=== PATIENT | male | born 1980 | race Hispanic/Latino ===

== ENCOUNTER 2019-07-02 02:06 | Emergency (ER) | payer SELFPAY ==
--- NOTE | 2019-07-02 02:57 | Emergency Department Report ---
<DIANA MISHRA - Last Filed: 07/05/19 14:28> ED Psych HPI - General Chief Complaint: Psych Stated Complaint: HEARING VOICES Time Seen by Provider: 07/02/19 02:55 - Related Data Previous Rx's Medication Instructions Recorded Last Taken Type OLANzapine [ZyPREXA] 5 mg PO QHS #30 tablet 07/05/19 Unknown Rx buPROPion [Wellbutrin] 100 mg PO 0800,1200 #60 tablet 07/05/19 Unknown Rx Allergies Allergy/AdvReac Type Severity Reaction Status Date / Time sulfamethoxazole Allergy Swelling Verified 07/02/19 02:15 [From Bactrim] trimethoprim [From Bactrim] Allergy Swelling Verified 07/02/19 02:15 ED Past Medical Hx - Medications Home Medications: Home Medications Medication Instructions Recorded Confirmed Last Taken Type OLANzapine [ZyPREXA] 5 mg PO QHS #30 tablet 07/05/19 Unknown Rx buPROPion [Wellbutrin] 100 mg PO 0800,1200 #60 tablet 07/05/19 Unknown Rx ED Course - Reevaluation(s) Reevaluation #1: 07/05/19 14:29 Patient medically cleared 3 days ago by my colleague, Dr. Diez. The patient has been in this department for days without clinical decompensation. His 1013 today was discontinued by the psychiatry team, and they have given him outpatient prescriptions. He can follow-up with an outpatient primary care doctor and/or psychiatrist for outpatient management. He did not endorse any urinary symptoms on review of systems. He can follow-up with an outpatient primary care doctor for this incidental asymptomatic abnormality. ED Medical Decision Making - Lab Data Result diagrams: 07/02/19 02:30 07/02/19 02:30 ED Disposition Clinical Impression: Suicidal ideation, Polysubstance abuse, Acute depression Disposition: DC-01 TO HOME OR SELFCARE Is pt being admited?: No Does the pt Need Aspirin: No Condition: Stable Additional Instructions: Continue current outpatient medications. Avoid consumption of recreational drugs, and alcohol. Patient had incidental asymptomatic nonemergent laboratory abnormalities, and these should be followed up by a primary care doctor within the next 2 to 4 weeks. Please follow-up with your primary care doctor or health department within the next 2 to 4 weeks. Return to the emergency room right away with new, worsened or different symptoms, or symptoms not present on the initial emergency room ciro luation. Your primary care doctor may contact the medical records department to obtain laboratory studies to follow-up nonemergent incidental abnormalities. Prescriptions: OLANzapine [ZyPREXA] 5 mg PO QHS #30 tablet buPROPion [Wellbutrin] 100 mg PO 0800,1200 #60 tablet Referrals: MAT KIRK MD [Staff Physician] - 3-5 Days [facility] [Outside] - 3-5 Days [facility] [Provider Group] - 3-5 Days <CECILY DIEZ - Last Filed: 07/06/19 11:04> ED Psych HPI - General Source: patient Mode of arrival: Ambulatory - History of Present Illness Initial Comments: Chief complaint: " The voices in my head are telling me to hurt myself." Mr. Corral is a 39-year-old male with history of HIV, neurosyphilis, depression, hypertension, who presents with thoughts of harming himself. He has voices in his head telling him to kill himself. He has been injecting himself with methamphetamine. He states that he is trying to end his life through drug use. He has used methamphetamine for over 20 years. He was recently discharged from [place] emergency department for depression. He feels that his symptoms are much more than that. He has been homeless for the past 3 years. He lives in abandoned buildings. He does not have family support. Otherwise he has been in his normal state of health. Complaint: suicidal ideation -: Gradual, week(s) (1) Associated Psychiatric Symptoms: depression, suicidal ideation, auditory hallucinations History of same: Yes Quality: constant Improves With: none Worsens With: none Context: recent drug abuse, not taking psychiatric, significant life stressor Associated Symptoms: denies other symptoms If Self Harm: admits thoughts of ED Review of Systems ROS: Stated complaint: HEARING VOICES Other details as noted in HPI Comment: All other systems reviewed and negative Constitutional: denies: fever, malaise Respiratory: denies: cough Cardiovascular: denies: chest pain ED Past Medical Hx - Past Medical History Previous Medical History?: Yes Hx Hypertension: Yes Hx Psychiatric Treatment: Yes (depression) Hx HIV: Yes Additional medical history: Neuro syphillis - Surgical History Past Surgical History?: Yes Hx Cholecystectomy: Yes - Social History Smoking Status: Current Every Day Smoker Substance Use Type: Marijuana, Methamphetamines ED Physical Exam - General Limitations: No Limitations General appearance: alert, in no apparent distress - Head Head exam: Present: atraumatic, normocephalic - Eye Eye exam: Present: normal appearance - ENT ENT exam: Present: mucous membranes moist - Neck Neck exam: Present: normal inspection, full ROM - Respiratory Respiratory exam: Present: normal lung sounds bilaterally. Absent: respiratory distress, wheezes, rales, rhonchi - Cardiovascular Cardiovascular Exam: Present: regular rate, normal rhythm, normal heart sounds. Absent: systolic murmur, diastolic murmur, rubs, gallop - GI/Abdominal GI/Abdominal exam: Present: soft, normal bowel sounds. Absent: distended, tenderness, guarding, rebound - Rectal Rectal exam: Present: deferred - Extremities Exam Extremities exam: Present: normal inspection - Back Exam Back exam: Present: normal inspection - Neurological Exam Neurological exam: Present: alert, oriented X3 - Psychiatric Psychiatric exam: Present: normal affect, depressed, suicidal ideation - Skin Skin exam: Present: warm, dry, intact, normal color. Absent: rash ED Course Vital Signs 07/02/19 07/02/19 07/02/19 02:16 07:32 10:05 Temperature 97.8 F 97.8 F 97.8 F Pulse Rate 103 H 63 75 Respiratory 20 20 20 Rate Blood Pressure Blood Pressure 132/86 98/51 112/56 [Right] O2 Sat by Pulse 97 97 100 Oximetry 07/02/19 07/02/19 07/02/19 14:10 19:38 20:22 Temperature 98.2 F 98.0 F Pulse Rate 85 73 Respiratory 20 18 18 Rate Blood Pressure Blood Pressure 113/57 93/51 [Right] O2 Sat by Pulse 98 99 99 Oximetry 07/03/19 07/03/19 07/03/19 01:37 07:55 14:10 Temperature 98.0 F 98.6 F Pulse Rate 68 64 73 Respiratory 16 18 Rate Blood Pressure 116/86 Blood Pressure 99/62 103/60 [Right] O2 Sat by Pulse 99 98 99 Oximetry 07/03/19 07/03/19 07/04/19 19:52 20:53 02:11 Temperature 97.8 F 98.0 F Pulse Rate 67 64 Respiratory 16 16 18 Rate Blood Pressure Blood Pressure 122/67 114/79 [Right] O2 Sat by Pulse 98 98 98 Oximetry 07/04/19 07/04/19 07/04/19 07:46 08:40 14:13 Temperature 99.5 F 98.4 F Pulse Rate 78 67 Respiratory 18 18 18 Rate Blood Pressure Blood Pressure 129/84 139/76 [Right] O2 Sat by Pulse 98 97 100 Oximetry 07/04/19 07/05/19 07/05/19 20:00 01:59 08:47 Temperature 98.1 F 97.6 F 98.2 F Pulse Rate 68 58 L 63 Respiratory 16 16 18 Rate Blood Pressure Blood Pressure 128/86 108/63 140/85 [Right] O2 Sat by Pulse 99 96 100 Oximetry ED Medical Decision Making - Lab Data Result diagrams: 07/02/19 02:30 07/02/19 02:30 Laboratory Results - last 24 hr 07/02/19 07/02/19 07/02/19 02:30 02:30 02:30 WBC RBC Hgb Hct MCV MCH MCHC RDW Plt Count Lymph % (Auto) [place] % (Auto) Eos % (Auto) Baso % (Auto) Lymph # [place] # Eos # Baso # Seg Neutrophils % Seg Neutrophils # Sodium 137 Potassium 4.1 Chloride 101.9 Carbon Dioxide 23 Anion Gap 16 BUN 16 Creatinine 1.1 Estimated GFR > 60 BUN/Creatinine Ratio 15 Glucose 145 H Calcium 9.2 Salicylates < 0.3 L Acetaminophen < 5.0 L Plasma/Serum Alcohol 07/02/19 07/02/19 02:30 02:30 WBC 5.4 RBC 5.20 H Hgb 15.1 Hct 44.6 MCV 86 MCH 29 MCHC 34 RDW 14.1 Plt Count 310 Lymph % (Auto) 36.9 H [place] % (Auto) 9.0 H Eos % (Auto) 2.8 Baso % (Auto) 1.7 Lymph # 2.0 [place] # 0.5 Eos # 0.2 Baso # 0.1 Seg Neutrophils % 49.6 Seg Neutrophils # 2.7 Sodium Potassium Chloride Carbon Dioxide Anion Gap BUN Creatinine Estimated GFR BUN/Creatinine Ratio Glucose Calcium Salicylates Acetaminophen Plasma/Serum Alcohol < 0.01 - Medical Decision Making Mr. Corral is a 39-year-old male with history of depression methamphetamine abuse HIV neurosyphilis who presents with suicidal ideation. He states that he is trying to kill himself through his extensive drug use. He has been injecting methamphetamine. He is quite honest and insightful. I have placed him on 1013 involuntary protocol. Considering social situation it may be difficult to contract for his safety. Mr. Corral is medically clear for psychiatric care. Critical care attestation.: If time is entered above; I have spent that time in minutes in the direct care of this critically ill patient, excluding procedure time. ED Disposition Is pt being admited?: No Does the pt Need Aspirin: No
[2019-07-02 02:59] LABS: Basophils # (Auto) 0.1 K/mm3 (0.0-0.1); Basophils % (Auto) 1.7 % (0.0-1.8); Eosinophils # (Auto) 0.2 K/mm3 (0.0-0.4); Eosinophils % (Auto) 2.8 % (0.0-4.3); Hematocrit 44.6 % (35.5-45.6); Hemoglobin 15.1 gm/dl (11.8-15.2); Lymphocytes % (Auto) 36.9 % (13.4-35.0); Mean Corpuscular HGB Conc 34 % (32-34); Mean Corpuscular Volume 86 fl (84-94); Monocytes # (Auto) 0.5 K/mm3 (0.0-0.8); Platelet Count 310 K/mm3 (140-440); Red Cell Distribution Width 14.1 % (13.2-15.2)
[2019-07-02 03:12] LABS: BUN/Creatinine Ratio 15; Blood Urea Nitrogen 16 mg/dL (9-20); Calcium 9.2 mg/dL (8.4-10.2); Hemolysis Index 12
[2019-07-02 08:45] LABS: Bacteria,Urine 2+ /HPF (Negative); Bilirubin,Urine NEG (Negative); Blood,Urine NEG (Negative); Calcium Oxalate Crystals,Urine 2+; Color,Urine Amber (Yellow); Mucus,Urine 3+ /HPF; Sperm,Urine 1+ /HPF (NP)
[2019-07-02 08:51] LABS: Benzodiazepines Screen,Urine PRESUMPTIVE NEGATIVE; Cocaine Screen,Urine PRESUMPTIVE NEGATIVE; Methadone Screen,Urine PRESUMPTIVE NEGATIVE; Opiate Screen,Urine PRESUMPTIVE NEGATIVE
[2019-07-02 09:04] LABS: Amphetamine Screen,Urine PRESUMPTIVE POSITIVE; Cannabinoid Screen,Urine PRESUMPTIVE POSITIVE
[2019-07-02] MEDS ORDERED: LORazepam 0.5 MG TAB ONE (18:43)
[2019-07-02] MEDS ORDERED: LORazepam 1 MG TAB PO ONE (18:44)
[2019-07-02] MEDS ORDERED: LORazepam 0.5 MG TAB PO ONE (18:48)
--- NOTE | 2019-07-03 09:03 | Consultation ---
History of Present Illness - Reason for Consult Consult date: 07/03/19 Reason for consult: SI, Polysubstance abuse Requesting physician: CECILY SHEA - Chief Complaint Chief complaint: Suicidal - History of Present Psychiatric Illness The patient is a 39yo single unemployed homeless male with history of Methamphetamine & Cannabis use disorder, HIV, Neurosyphilis and HTN. He presented to the ED with c/o hearing voices, depressed mood and suicidal thoughts. Psychiatry consulted to evaluate patient, initiate treatment and recommend disposition. Per ED Provider's note: Mr. Corral is a 39-year-old male with history of HIV, neurosyphilis, depression, hypertension, who presents with thoughts of harming himself. He has voices in his head telling him to kill himself. He has been injecting himself with methamphetamine. He states that he is trying to end his life through drug use. He has used methamphetamine for over 20 years. He was recently discharged from [place] emergency department for depression. He feels that his symptoms are much more than that. He has been homeless for the past 3 years. He lives in abandoned buildings. He does not have family support. Otherwise he has been in his normal state of health. Patient seen by me this morning. He is alert, fully oriented, calm and cooperative. He continues to endorse hearing voices that tell him to end his life; he feels depressed and suicidal with a plan to overdose on IV Meth. Patient relates his depressed mood and suicidal thoughts to multiple stresses including being lonely, no social support, homeless and being infected with HIV. He has decreased appetite and sleeps poorly. Patient denies panic attacks, recurrent nightmares or flashbacks. Patient denies symptoms suggestive of OCD or PTSD. Patient denies paranoia, thought interference and no features suggestive of hypomania or jenelle. He completely denies homicidal thoughts. PAST PSYCHIATRIC HISTORY: Diagnoses: None Suicide attempts or Self-harm behavior: patient denies Prior psychiatric hospitalizations: patient denies Substance Abuse history: THC and Meth Previous psychiatric medications tried: None Outpatient treatment: None PAST MEDICAL HISTORY: HIV, Neurosyphilis and HTN Family Psychiatric History None reported or documented SOCIAL HISTORY Marital Status: Single Living Arrangements: homeless Employment Status: unemployed Access to guns/weapons: Patient denies Education: High School History of Abuse: Patient denies Legal History: Patient denies ROS: Constitutional: Negative for weight loss ENT: Negative for stridor Respiratory: Negative for cough or hemoptysis All other systems reviewed and are negative MENTAL STATUS General Appearance and Behavior: age appropriate, good eye contact, cooperative with questioning and polite Cooperation: Cooperative Psychomotor Behavior: within normal limits Mood: depressed Affect and affective range: Congruent with stated mood Thought Process: Fluent/Logical and Goal-directed Thought Content: AH Speech: Normal volume and Regular rate and rhythm Intellectual Functioning Average Suicidal Ideation: yes Homicidal Ideation: Denies HI Impulse Control: intact Insight and Judgment: normal insight and judgment Memory: Normal Attention: Normal Orientation: alert and oriented Diagnoses: Major depressive disorder, single episode severe with psychosis Substance induced mood disorder with psychosis Amphetamine use disorder severe dependence Cannabis use disorder severe dependence RECOMMENDATIONS MEDICATIONS: Wellbutrin 100mg qam and qnoon for depression Olanzapine 5mg qhs for psychosis Risks, benefits and alternatives of medications discussed with the patient, ques tions answered and consent obtained from patient. 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 Please contact with any questions and/or concerns. Medications and Allergies Allergies Allergy/AdvReac Type Severity Reaction Status Date / Time sulfamethoxazole Allergy Swelling Verified 07/02/19 02:15 [From Bactrim] trimethoprim [From Bactrim] Allergy Swelling Verified 07/02/19 02:15 Mental Status Exam - Vital signs Last Vital Signs Temp 98.6 F 07/03/19 07:55 Pulse 64 07/03/19 07:55 Resp 18 07/03/19 07:55 BP 103/60 07/03/19 07:55 Pulse Ox 98 07/03/19 07:55 Results Result Diagrams: 07/02/19 02:30 07/02/19 02:30 Abnormal lab results 07/02/19 Range/Units 08:27 Urine WBC (Auto) 22.0 H (0.0-6.0) /HPF All other labs normal.
[2019-07-03] MEDS: buPROPion 100 MG TAB PO SCH (14:07)
[2019-07-04] MEDS: buPROPion 100 MG TAB PO SCH (07:42)
--- NOTE | 2019-07-04 11:23 | Progress Note ---
Subjective - Reason for Consult Consult date: 07/04/19 Reason for consult: Psych follow up - Chief Complaint Chief complaint: Suicidal SUBJECTIVE The patient continues to endorse hearing voices that tell him to end his life; he feels depressed and suicidal with a plan to overdose on IV Meth. ROS: Constitutional: Negative for weight loss ENT: Negative for stridor Respiratory: Negative for cough or hemoptysis All other systems reviewed and are negative MENTAL STATUS General Appearance and Behavior: age appropriate, good eye contact, cooperative with questioning and polite Cooperation: Cooperative Psychomotor Behavior: within normal limits Mood: depressed Affect and affective range: Congruent with stated mood Thought Process: Fluent/Logical and Goal-directed Thought Content: AH Speech: Normal volume and Regular rate and rhythm Intellectual Functioning Average Suicidal Ideation: yes Homicidal Ideation: Denies HI Impulse Control: intact Insight and Judgment: normal insight and judgment Memory: Normal Attention: Normal Orientation: alert and oriented Diagnoses: Major depressive disorder, single episode severe with psychosis Substance induced mood disorder with psychosis Amphetamine use disorder severe dependence Cannabis use disorder severe dependence RECOMMENDATIONS MEDICATIONS: Wellbutrin 100mg qam and qnoon for depression Olanzapine 5mg qhs for psychosis Risks, benefits and alternatives of medications discussed with the patient, questions answered and consent obtained from patient. 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 Please contact with any questions and/or concerns. Mental Status Exam - Vital signs Last Vital Signs Temp 99.5 F 07/04/19 08:40 Pulse 78 07/04/19 08:40 Resp 18 07/04/19 08:40 BP 129/84 07/04/19 08:40 Pulse Ox 97 07/04/19 08:40
[2019-07-05] MEDS: buPROPion 100 MG TAB PO SCH ×3 (04:17→14:58)
[2019-07-05 08:50] VITALS: BP 140/85
--- NOTE | 2019-07-05 14:16 | Progress Note ---
Subjective - Reason for Consult Consult date: 07/05/19 Reason for consult: Psych follow-up - Chief Complaint Chief complaint: None today SUBJECTIVE The patient reports improved mood. He completely denies SI/HI/AVH/Paranoia. He wants to be discharged home and asks to be continued on current medications as he finds them beneficial. ROS: Constitutional: Negative for weight loss ENT: Negative for stridor Respiratory: Negative for cough or hemoptysis All other systems reviewed and are negative MENTAL STATUS General Appearance and Behavior: age appropriate, good eye contact, cooperative with questioning and polite Cooperation: Cooperative Psychomotor Behavior: within normal limits Mood: depressed Affect and affective range: Congruent with stated mood Thought Process: Fluent/Logical and Goal-directed Thought Content: WNL Speech: Normal volume and Regular rate and rhythm Intellectual Functioning Average Suicidal Ideation: Denies SI Homicidal Ideation: Denies HI Impulse Control: intact Insight and Judgment: normal insight and judgment Memory: Normal Attention: Normal Orientation: alert and oriented Diagnoses: Major depressive disorder, single episode severe with psychosis Substance induced mood disorder with psychosis Amphetamine use disorder severe dependence Cannabis use disorder severe dependence RECOMMENDATIONS MEDICATIONS: Wellbutrin 100mg qam and qnoon for depression Olanzapine 5mg qhs for psychosis Risks, benefits and alternatives of medications discussed with the patient, questions answered and consent obtained from patient. 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 Patient to complete Safety Plan Please provide patient outpatient resources Thank you for the consult. Please contact with any questions and/or concerns. Mental Status Exam - Vital signs Last Vital Signs Temp 98.2 F 07/05/19 08:47 Pulse 63 07/05/19 08:47 Resp 18 07/05/19 08:47 BP 140/85 07/05/19 08:47 Pulse Ox 100 07/05/19 08:47
== END 2019-07-05 14:59 | disposition home or self-care (01) ==
LOC: EEVIPCON 02:06 → ED 02:06
DX: R45.851 Suicidal ideations (principal); F32.9 Major depressive disorder, single episode, unspecified; F19.10 Other psychoactive substance abuse, uncomplicated; I10 Essential (primary) hypertension; F17.200 Nicotine dependence, unspecified, uncomplicated; F12.10 Cannabis abuse, uncomplicated; Z90.49 Acquired absence of other specified parts of digestive tract; Z88.8 Allergy status to other drugs, medicaments and biological substances; Z79.899 Other long term (current) drug therapy
CPT/HCPCS: 36415; 80048; 80307; 80320; 81001; 85025; 87086; G0480

== ENCOUNTER 2021-02-17 13:20 | Emergency (ER) | payer SELFPAY | END 2021-02-17 13:25 | disposition left against medical advice (07) | LOC: ED 13:20 | DX: J02.9 Acute pharyngitis, unspecified (principal); Z53.21 Procedure and treatment not carried out due to patient leaving prior to being seen by health care provider ==

== ENCOUNTER 2021-03-05 16:16 | Emergency (ER) | payer SELFPAY ==
[2021-03-05] MEDS ORDERED: LORazepam 2 MG/ML VIAL IM PRN (17:56)
[2021-03-05] MEDS ORDERED: HALOPERIDOL LACTATE 5 MG/1 ML INJ IM PRN (17:56)
[2021-03-05] MEDS ORDERED: LORazepam 2 MG/ML VIAL IM STA (17:57)
--- NOTE | 2021-03-05 17:58 | Emergency Department Report ---
ED General Adult HPI - General Chief complaint: Psych Stated complaint: I WANT TO 1013 MYSELF Time Seen by Provider: 03/05/21 16:56 Source: patient, RN notes reviewed, old records reviewed Mode of arrival: Ambulatory Limitations: No Limitations - History of Present Illness Initial comments: The patient is a 41-year-old gentleman, who has a history of being HIV positive, is currently on antiviral therapy, also has a history of anxiety, tremors, methamphetamine abuse, who presents to the ER today with a request for evaluation. He reports that he recently relapsed on methamphetamines, and is very depressed, sad and suicidal about this. He denies physical pain. He denies homicidality. He does have a plan to kill himself, he might overdose or run into traffic. He endorses chest tightness and heart racing after methamphetamine use. He denies travel, surgery, immobilization, posterior leg pain and leg swelling. His symptoms at this point time are constant. He reports that they are exacerbated by methamphetamine relapse, and he reports that he has been clean for about 2 months. He also reports that he is feeling very anxious -: Sudden Consistency: constant Improves with: none Worsens with: other (Methamphetamine relapse) - Related Data Home Medications Medication Instructions Recorded Confirmed Last Taken Biktarvy 50-200-25 mg Tablet 1 tab PO DAILY 03/05/21 03/05/21 03/05/21 10:00 Propranolol HCl [Inderal LA] 250 mg PO DAILY 03/05/21 03/05/21 03/05/21 10:00 amLODIPine 10 mg PO DAILY 03/05/21 03/05/21 03/05/21 10:00 Allergies Allergy/AdvReac Type Severity Reaction Status Date / Time sulfamethoxazole Allergy Swelling Verified 07/02/19 02:15 [From Bactrim] trimethoprim [From Bactrim] Allergy Swelling Verified 07/02/19 02:15 ED Review of Systems ROS: Stated complaint: I WANT TO 1013 MYSELF Other details as noted in HPI Constitutional: malaise. denies: fever Eyes: denies: eye discharge ENT: denies: epistaxis Respiratory: denies: cough Cardiovascular: other (Heart racing) Gastrointestinal: denies: nausea, vomiting Genitourinary: denies: dysuria Musculoskeletal: denies: back pain Neurological: denies: weakness Psychiatric: anxiety, suicidal thoughts ED Past Medical Hx - Past Medical History Previous Medical History?: Yes Hx Hypertension: Yes Hx Psychiatric Treatment: Yes (depression) Hx HIV: Yes Additional medical history: Neuro syphillis - Surgical History Hx Cholecystectomy: Yes - Social History Smoking Status: Current Every Day Smoker Substance Use Type: Marijuana - Medications Home Medications: Home Medications Medication Instructions Recorded Confirmed Last Taken Type Biktarvy 50-200-25 mg Tablet 1 tab PO DAILY 03/05/21 03/05/21 03/05/21 10:00 History Propranolol HCl [Inderal LA] 250 mg PO DAILY 03/05/21 03/05/21 03/05/21 10:00 History amLODIPine 10 mg PO DAILY 03/05/21 03/05/21 03/05/21 10:00 History ED Physical Exam - General Limitations: No Limitations General appearance: alert, anxious, in distress - Head Head exam: Present: atraumatic, normocephalic - Eye Eye exam: Present: normal appearance, EOMI. Absent: nystagmus - ENT ENT exam: Present: normal exam, normal orophraynx, mucous membranes moist, normal external ear exam - Neck Neck exam: Present: normal inspection, full ROM. Absent: tenderness, meningismus - Respiratory Respiratory exam: Present: normal lung sounds bilaterally. Absent: respiratory distress, wheezes, rales, rhonchi, stridor, decreased breath sounds - Cardiovascular Cardiovascular Exam: Present: normal rhythm, tachycardia, normal heart sounds. Absent: bradycardia, irregular rhythm, systolic murmur, diastolic murmur, rubs, gallop - GI/Abdominal GI/Abdominal exam: Present: soft. Absent: distended, tenderness, guarding, rebound, rigid, pulsatile mass - Rectal Rectal exam: Present: deferred - Extremities Exam Extremities exam: Present: normal inspection, full ROM, other (2+ pulses noted in the bilateral upper and lower extremities. There is no palpable cord. negative Homans sign. Muscular compartments are soft. The pelvis is stable.). Absent: pedal edema, calf tenderness - Back Exam Back exam: Present: normal inspection, full ROM. Absent: tenderness, CVA tenderness (R), CVA tenderness (L), paraspinal tenderness, vertebral tenderness - Neurological Exam Neurological exam: Present: alert, oriented X3, normal gait, other (No facial droop. Tongue midline. Extraocular movements intact bilaterally. Facial sensation intact to light touch in V1, V2, V3 distribution bilaterally. 5 and a 5 strength in 4 extremities. Sensation intact to light touch in 4 extremities.). Absent: motor sensory deficit - Psychiatric Psychiatric exam: Present: anxious, suicidal ideation - Skin Skin exam: Present: warm, dry, intact, normal color. Absent: rash ED Course Vital Signs 03/05/21 03/05/21 16:19 17:05 Temperature 98 F Pulse Rate 128 H Respiratory 16 Rate Blood Pressure 152/104 [Right] O2 Sat by Pulse 96 96 Oximetry - Reevaluation(s) Reevaluation #1: 03/05/21 19:07 Differential diagnosis, including but not limited to: Methamphetamine abuse, depression, psychosis, medical clearance for psychiatric placement Assessment and plan: 41-year-old gentleman, who was afebrile with reassuring vital signs, tachycardia improving, heart rate now 106 bpm, tachycardia likely secondary to recent methamphetamine binge, as well as anxiety, who presents to the ER today with a complaint of painless suicidality, plan to kill himself, and depression, secondary to homelessness and methamphetamine relapse. 1013 is ordered. Home medications reconciled. Laboratory studies nonactionable. TSH unremarkable. EKG nonspecific, without any emergent findings. Psychiatric consultation requested. Holding orders initiated. At this point in time, this patient does not appear to have an immediate medical contraindication to psychiatric admission, evaluation, consultation and placement. I discussed this plan of care with the patient. He articulated understanding. All questions answered ED Medical Decision Making - Lab Data Result diagrams: 03/05/21 17:57 03/05/21 17:57 Vital Signs 03/05/21 03/05/21 16:19 17:05 Temperature 98 F Pulse Rate 128 H Respiratory 16 Rate Blood Pressure 152/104 [Right] O2 Sat by Pulse 96 96 Oximetry Labs 03/05/21 03/05/21 03/05/21 17:57 17:57 17:57 WBC RBC Hgb Hct MCV MCH MCHC RDW Plt Count Lymph % (Auto) [place] % (Auto) Eos % (Auto) Baso % (Auto) Lymph # (Auto) [place] # (Auto) Eos # (Auto) Baso # (Auto) Seg Neutrophils % Seg Neutrophils # Sodium 135 L Potassium 3.9 Chloride 97.6 L Carbon Dioxide 20 L Anion Gap 21 BUN 12 Creatinine 0.8 Estimated GFR > 60 BUN/Creatinine Ratio 15 Glucose 115 H Calcium 9.9 Total Creatine Kinase 74 TSH Urine Color Urine Turbidity Urine pH Ur Specific [place] Urine Protein Urine Glucose (UA) Urine Ketones Urine Blood Urine Nitrite Urine Bilirubin Urine Urobilinogen Ur Leukocyte Esterase Urine WBC (Auto) Urine RBC (Auto) U Epithel Cells (Auto) Urine Mucus Salicylates < 0.3 L Urine Opiates Screen Urine Methadone Screen Acetaminophen 5.0 L Ur Barbiturates Screen Ur Phencyclidine Scrn Ur Amphetamines Screen U Benzodiazepines Scrn Urine Cocaine Screen U Marijuana (THC) Screen Drugs of Abuse Note Plasma/Serum Alcohol 03/05/21 03/05/21 03/05/21 17:57 17:57 18:09 WBC 9.6 RBC 5.76 H Hgb 17.9 H Hct 52.1 H MCV 91 MCH 31 MCHC 34 RDW 13.5 Plt Count 360 Lymph % (Auto) 23.1 [place] % (Auto) 6.9 Eos % (Auto) 0.6 Baso % (Auto) 0.7 Lymph # (Auto) 2.2 [place] # (Auto) 0.7 Eos # (Auto) 0.1 Baso # (Auto) 0.1 Seg Neutrophils % 68.7 Seg Neutrophils # 6.6 Sodium Potassium Chloride Carbon Dioxide Anion Gap BUN Creatinine Estimated GFR BUN/Creatinine Ratio Glucose Calcium Total Creatine Kinase TSH 1.720 Urine Color Urine Turbidity Urine pH Ur Specific [place] Urine Protein Urine Glucose (UA) Urine Ketones Urine Blood Urine Nitrite Urine Bilirubin Urine Urobilinogen Ur Leukocyte Esterase Urine WBC (Auto) Urine RBC (Auto) U Epithel Cells (Auto) Urine Mucus Salicylates Urine Opiates Screen Urine Methadone Screen Acetaminophen Ur Barbiturates Screen Ur Phencyclidine Scrn Ur Amphetamines Screen U Benzodiazepines Scrn Urine Cocaine Screen U Marijuana (THC) Screen Drugs of Abuse Note Plasma/Serum Alcohol < 0.01 03/05/21 03/05/21 Unknown Unknown WBC RBC Hgb Hct MCV MCH MCHC RDW Plt Count Lymph % (Auto) [place] % (Auto) Eos % (Auto) Baso % (Auto) Lymph # (Auto) [place] # (Auto) Eos # (Auto) Baso # (Auto) Seg Neutrophils % Seg Neutrophils # Sodium Potassium Chloride Carbon Dioxide Anion Gap BUN Creatinine Estimated GFR BUN/Creatinine Ratio Glucose Calcium Total Creatine Kinase TSH Urine Color Yellow Urine Turbidity Clear Urine pH 6.0 Ur Specific [place] 1.008 Urine Protein 100 mg/dl Urine Glucose (UA) Neg Urine Ketones Neg Urine Blood Neg Urine Nitrite Neg Urine Bilirubin Neg Urine Urobilinogen < 2.0 Ur Leukocyte Esterase Neg Urine WBC (Auto) 4.0 Urine RBC (Auto) 1.0 U Epithel Cells (Auto) < 1.0 Urine Mucus Few Salicylates Urine Opiates Screen Negative Urine Methadone Screen Negative Acetaminophen Ur Barbiturates Screen Negative Ur Phencyclidine Scrn Negative Ur Amphetamines Screen Positive U Benzodiazepines Scrn Negative Urine Cocaine Screen Negative U Marijuana (THC) Screen Positive Drugs of Abuse Note Disclamer Plasma/Serum Alcohol - EKG Data -: EKG Interpreted by Or EKG shows normal: sinus rhythm Rate: tachycardia - EKG Data 03/05/21 19:05 The EKG is interpreted at 18: 26 Sinus rhythm, tachycardia, rate 106 bpm. Normal axis, QTC 442 ms. Motion artifact. EKG. Not a STEMI - Radiology Data Radiology results: pending, report reviewed, image reviewed CHEST 1 VIEW 03/05/2021 5:42 PM INDICATION / CLINICAL INFORMATION: dyspnea. COMPARISON: None available. FINDINGS: SUPPORT DEVICES: None. HEART / MEDIASTINUM: No significant abnormality. LUNGS / PLEURA: No significant pulmonary or pleural abnormality. No pneumothorax. ADDITIONAL FINDINGS: No significant additional findings. IMPRESSION: 1. No acute findings. Signer Name: Cody Ruggiero DO Signed: 03/05/2021 5:45 PM Workstation Name: [id number] Critical care attestation.: If time is entered above; I have spent that time in minutes in the direct care of this critically ill patient, excluding procedure time. ED Disposition Clinical Impression: Methamphetamine abuse, Medical clearance for psychiatric admission Disposition: [address] [place] [address] Is pt being admited?: No Does the pt Need Aspirin: No Condition: Good
[2021-03-05 18:12] LABS: Bilirubin,Urine NEG (Negative); Blood,Urine NEG (Negative); Color,Urine Yellow (Yellow); Mucus,Urine FEW /HPF; Urobilinogen,Urine < 2.0 mg/dL (<2.0)
[2021-03-05 18:17] LABS: Basophils # (Auto) 0.1 K/mm3 (0.0-0.1); Basophils % (Auto) 0.7 % (0.0-1.8); Eosinophils # (Auto) 0.1 K/mm3 (0.0-0.4); Eosinophils % (Auto) 0.6 % (0.0-4.3); Hematocrit 52.1 % (35.5-45.6); Hemoglobin 17.9 gm/dl (11.8-15.2); Lymphocytes # (Auto) 2.2 K/mm3 (1.2-5.4); Lymphocytes % (Auto) 23.1 % (13.4-35.0); Mean Corpuscular HGB Conc 34 % (32-34); Mean Corpuscular Volume 91 fl (84-94); Monocytes # (Auto) 0.7 K/mm3 (0.0-0.8); Monocytes % (Auto) 6.9 % (0.0-7.3); Platelet Count 360 K/mm3 (140-440); Red Blood Count 5.76 M/mm3 (3.65-5.03); Red Cell Distribution Width 13.5 % (13.2-15.2)
[2021-03-05 18:21] LABS: Benzodiazepines Screen,Urine Negative; Cocaine Screen,Urine Negative; Methadone Screen,Urine Negative; Opiate Screen,Urine Negative
[2021-03-05 18:30] LABS: BUN/Creatinine Ratio 15; Blood Urea Nitrogen 12 mg/dL (9-20); Calcium 9.9 mg/dL (8.4-10.2); Hemolysis Index 13
[2021-03-05 18:33] LABS: Amphetamine Screen,Urine Positive; Cannabinoid Screen,Urine Positive
--- NOTE | 2021-03-05 18:49 | XRay Report ---
CHEST 1 VIEW 03/05/2021 5:42 PM INDICATION / CLINICAL INFORMATION: dyspnea. COMPARISON: None available. FINDINGS: SUPPORT DEVICES: None. HEART / MEDIASTINUM: No significant abnormality. LUNGS / PLEURA: No significant pulmonary or pleural abnormality. No pneumothorax. ADDITIONAL FINDINGS: No significant additional findings. IMPRESSION: 1. No acute findings. Signer Name: Cody Ruggiero DO Signed: 03/05/2021 6:45 PM Workstation Name: [id number]
[2021-03-05] MEDS ORDERED: ONDANSETRON 4 MG ODT TAB PO PRN (19:09)
[2021-03-05] MEDS ORDERED: diphenhydrAMINE 25 MG CAP PO PRN (19:09)
[2021-03-05] MEDS ORDERED: ACETAMINOPHEN 325 MG TAB PO PRN (19:09)
[2021-03-05] MEDS ORDERED: NON-FORMULARY EACH (Biktarvy 50-200-25 Mg Tablet 1 TAB) PO SCH (19:15)
[2021-03-05 19:26] LABS: INR 0.97 (0.87-1.13)
[2021-03-05] MEDS: amLODIPine 10 MG TAB PO SCH (21:50)
[2021-03-06] MEDS ORDERED: DOLUTEGRAVIR 50 MG TAB PO SCH (10:00)
[2021-03-06] MEDS ORDERED: TENOFOVIR 300 MG TAB PO SCH (10:00)
[2021-03-06] MEDS ORDERED: PROPRANOLOL HCL 160 MG PO SCH (10:00)
[2021-03-06] MEDS ORDERED: EMTRICITABINE 200 MG CAP PO SCH (10:00)
[2021-03-06] MEDS ORDERED: PROPRANOLOL LA 80 MG CAP PO SCH (10:00)
[2021-03-06] MEDS: amLODIPine 10 MG TAB PO SCH (10:26)
--- NOTE | 2021-03-06 11:34 | Consultation ---
History of Present Illness - Reason for Consult Consult date: 03/06/21 Reason for consult: SI - History of Present Psychiatric Illness The patient was seen today. He is tearful. He says he feels like someone is chasing him. The patient endorses suicidal thoughts, with a plan to shoot himself. He denies being on any psych meds. He says he has a history of paranoid schizophrenia and was placed on risperidone, but could not take it. He denies any illicit drug use outside of "weed." But the patient is positive for amphetamines. PAST PSYCHIATRIC HISTORY Diagnoses: depression, schizophrenia Suicide attempts or Self-harm behavior: Yes Prior psychiatric hospitalizations: Yes Substance Abuse history: [place] Previous psychiatric medications tried: risperidone Outpatient treatment: Yes PAST MEDICAL HISTORY: None reported Family Psychiatric History: None reported or documented SOCIAL HISTORY Marital Status: Single Living Arrangements: with parents Employment Status: unemployed Access to guns/weapons: None report Education: high school History of Abuse: None reported Legal History: yes REVIEW OF SYSTEMS Constitutional: Negative for weight loss ENT: Negative for stridor Respiratory: Negative for cough or hemoptysis All other systems reviewed and are negative MENTAL STATUS EXAMINATION General Appearance and Behavior: Age appropriate, good hygiene, wearing appropriate clothes, fair eye contact, withdrawn Cooperation: Participating/engaged, but Guarded Psychomotor Behavior: Psychomotor normal Mood: depressed Affect and affective range: congruent with stated mood, tearful Thought Process: goal directed Thought Content: hopelessness, helplessness Speech: Normal rate, volume and rhythm Intellectual Functioning: Average Suicidal Ideation: Yes Homicidal Ideation: Denies Impulse Control: Impaired Insight and Judgment: Limited insight and judgment Memory: Normal Attention: Normal Orientation: Alert, oriented Assessment and Plan (1) Schizophrenia (2) Methamphetamine Dependence Treatment Plan Seroquel 25mg po BID Prozac 10mg po daily Trazodone 50mg po qhs Risks, benefits and alternatives of medications discussed with the patient, questions answered and consent obtained from patient. PSYCHOTHERAPY: Supportive psychotherapy provided MEDICAL: Per primary team DELIRIUM PRECAUTIONS: Please re-orient patient frequently, keep lights on during the day, and minimize benzodiazepines and opiates as these medications could worsen patient's confusion. 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 LEGAL STATUS: 1013 FOLLOW-UP: Will follow Thank you for the consult. Please contact with any questions and/or concerns. Case discussed with Dr. Snyder who agrees with current disposition Medications and Allergies Allergies Allergy/AdvReac Type Severity Reaction Status Date / Time sulfamethoxazole Allergy Swelling Verified 07/02/19 02:15 [From Bactrim] trimethoprim [From Bactrim] Allergy Swelling Verified 07/02/19 02:15 Home Medications Medication Instructions Recorded Confirmed Last Taken Type Biktarvy 50-200-25 mg Tablet 1 tab PO DAILY 03/05/21 03/05/21 03/05/21 10:00 History Propranolol HCl [Inderal LA] 250 mg PO DAILY 03/05/21 03/05/21 03/05/21 10:00 History amLODIPine 10 mg PO DAILY 03/05/21 03/05/21 03/05/21 10:00 History Active Meds: Active Medications Acetaminophen (Acetaminophen 325 Mg Tab) 650 mg PO Q6HR PRN PRN Reason: PAIN Amlodipine Besylate (Amlodipine 10 Mg Tab) 10 mg PO DAILY [facility] Last Admin: 03/06/21 10:26 Dose: 10 mg Documented by: Diphenhydramine HCl (Diphenhydramine 25 Mg Cap) 50 mg PO QHS PRN PRN Reason: Insomnia Emtricitabine (Emtricitabine 200 Mg Cap) 200 mg PO QDAY [facility] Last Admin: 03/06/21 10:26 Dose: 200 mg Documented by: Haloperidol Lactate (Haloperidol Lactate 5 Mg/1 Ml Inj) 5 mg IM Q6HR PRN PRN Reason: Agitation Lorazepam (Lorazepam 2 Mg/Ml Vial) 2 mg IM Q4HR PRN PRN Reason: Agitation Ondansetron HCl (Ondansetron 4 Mg Odt Tab) 4 mg PO Q6HR PRN PRN Reason: Nausea Propranolol HCl (Propranolol La 80 Mg Cap) 240 mg PO QDAY [facility] Last Admin: 03/06/21 10:25 Dose: 240 mg Documented by: Tenofovir Disoproxil Fumarate (Tenofovir 300 Mg Tab) 300 mg PO QDAY [facility] Last Admin: 03/06/21 10:26 Dose: 300 mg Documented by: Mental Status Exam - Vital signs Last Vital Signs Temp 98.4 F 03/06/21 10:29 Pulse 84 03/06/21 10:29 Resp 16 03/06/21 10:29 BP 120/70 03/06/21 10:29 Pulse Ox 97 03/06/21 10:29 Results Result Diagrams: 03/05/21 17:57 03/05/21 17:57 Abnormal lab results 03/05/21 03/05/21 03/05/21 Range/Units 17:57 17:57 17:57 RBC (3.65-5.03) M/mm3 Hgb (11.8-15.2) gm/dl Hct (35.5-45.6) % Sodium 135 L (137-145) mmol/L Chloride 97.6 L (98-107) mmol/L Carbon Dioxide 20 L (22-30) mmol/L Glucose 115 H (75-100) mg/dL Salicylates < 0.3 L (2.8-20.0) mg/dL Acetaminophen 5.0 L (10.0-30.0) ug/mL 03/05/21 Range/Units 17:57 RBC 5.76 H (3.65-5.03) M/mm3 Hgb 17.9 H (11.8-15.2) gm/dl Hct 52.1 H (35.5-45.6) % Sodium (137-145) mmol/L Chloride (98-107) mmol/L Carbon Dioxide (22-30) mmol/L Glucose (75-100) mg/dL Salicylates (2.8-20.0) mg/dL Acetaminophen (10.0-30.0) ug/mL All other labs normal.
[2021-03-06] MEDS: QUEtiapine 25 MG TAB PO SCH ×2 (11:51→21:50)
[2021-03-06] MEDS ORDERED: FLUoxetine 10 MG TAB PO SCH (12:00)
--- NOTE | 2021-03-06 12:50 | Event Note ---
Vital signs stable. Patient is medically clear. Mental health team recommends inpatient psychiatric hospitalization, [address]
[2021-03-06] MEDS ORDERED: traZODone 50 MG TAB PO SCH (22:00)
[2021-03-07 08:07] VITALS: BP 133/70
--- NOTE | 2021-03-07 10:24 | Electrocardiograph Report ---
[facility] Test Date: 2021-03-05 Test Time: 18:26:43 Pat Name: NIHARIKA HARVEY Department: Room: Gender: M Caddie: DIANA : 1980 Requested By: DIANA MISHRA Order Number: [id number] Reading MD: Cassi Hough Measurements Intervals [place] Rate: 106 P: 63 GA: 136 QRS: 38 QRSD: 94 T: 51 QT: 332 QTc: 442 Interpretive Statements Sinus tachycardia Inferior infarct, old No previous ECG available for comparison Electronically Signed On 03-07-2021 10:23:42 EST by Cassi Hough
== END 2021-03-07 08:07 ==
LOC: ED 16:16 → EEVIPCON 16:16 → ED 03-07 08:07
DX: F20.9 Schizophrenia, unspecified (principal); F15.20 Other stimulant dependence, uncomplicated; I10 Essential (primary) hypertension; F32.9 Major depressive disorder, single episode, unspecified; F17.200 Nicotine dependence, unspecified, uncomplicated; F12.10 Cannabis abuse, uncomplicated; Z20.822 Contact with and (suspected) exposure to COVID-19
CPT/HCPCS: 36415; 71045; 80048; 80307; 81001; 82550; 84443; 85025; 85610; 93005; 96372; 99285; J2060; U0003; 80320; G0480